=== PATIENT | female | born 1970 | race Caucasian/White ===

== ENCOUNTER 2023-02-10 13:34 | Outpatient (OUT) | payer OTHER, SELFPAY | END 2023-02-10 13:35 | disposition home or self-care (01) | LOC: PST 13:35 | PROVIDERS: Visit Provider Surgery | DX: Z01.818 Encounter for other preprocedural examination (principal); Z12.11 Encounter for screening for malignant neoplasm of colon ==

== ENCOUNTER 2023-02-12 10:00 | Day surgery (SDC) | payer OTHER, SELFPAY ==
--- NOTE | 2023-02-12 | OP_ITS ---
OPERATION DATE: ??02/12/2023 PREOPERATIVE DIAGNOSIS:? Colorectal screening. POSTOPERATIVE DIAGNOSIS: Normal colonoscopy to cecum. PROCEDURE: Colonoscopy to cecum. SURGEON:? Steve Lomeli M.D. ANESTHESIA:? Monitored anesthesia care. ESTIMATED BLOOD LOSS:? Zero. INDICATIONS AND CONSENT:? Patient is a 52-year-old female presents for colorectal screening.? Indications, risks, benefits, alternatives of proceeding with colonoscopy were explained extensively to the patient, including the risks of bleeding, colon perforation or anesthetic complications.? All of her questions were answered.? Informed consent was obtained. PROCEDURE:? Patient brought to the operating room, placed in the left lateral decubitus position.? Monitored anesthesia care was provided.? Rectal exam was performed which showed no masses or blood.? The scope was inserted into the anal canal.? Under direct visualization was advanced.? It was advanced to the cecum where cecal markings were clearly identified.? There was noted to be a good prep.? Upon withdrawal of the scope, mucosal surfaces were carefully examined.? There were no mass lesions or polyps.? No inflammatory changes or ulcerations.? No significant diverticulosis.? The scope was retroflexed in the anal canal.? There was no significant hemorrhoidal disease.? Scope was then withdrawn.? Patient tolerated procedure well, was sent to recovery room in good condition. f/u colonoscopy in 10 years CC:? Reji Alvares
[2023-02-12 10:13] VITALS: BP 112/82; PULSE 82; RESP 16; TEMP 36.1; O2SAT 98; BMI 23.6
[2023-02-12] MEDS: LACTATED RINGER'S SOLUTION 1,000 ML 50 ML IV (10:27)
[2023-02-12 12:17] VITALS: BP 99/56; PULSE 84; RESP 16; TEMP 35.9; O2SAT 98
[2023-02-12 12:32] VITALS: BP 90/73; PULSE 70; RESP 16; O2SAT 97
[2023-02-12 12:47] VITALS: BP 114/67; PULSE 75; RESP 16; O2SAT 100
== END 2023-02-12 12:47 | disposition home or self-care (01) ==
PROVIDERS: PCP Student in an Organized Health Care Education/Training Program; Visit Provider Surgery
PROC: (CPT 45378; principal; 2023-02-12 11:10)
DX: Z12.11 Encounter for screening for malignant neoplasm of colon (principal); E55.9 Vitamin D deficiency, unspecified; Z90.710 Acquired absence of both cervix and uterus
CPT/HCPCS: 45378; J2704